=== PATIENT | female | born 2000 | race Caucasian/White ===

== ENCOUNTER 2022-10-29 22:49 | Emergency (ER) | payer BC ==
[2022-10-29] MEDS ORDERED: Acetaminophen 500 MG TAB ONE (23:32)
[2022-10-29] MEDS ORDERED: Ondansetron ODT 4 MG TAB ONE (23:53)
== END 2022-10-30 01:18 | disposition home or self-care (01) ==
LOC: CSHERS 22:49
DX: S16.1XXA Strain of muscle, fascia and tendon at neck level, initial encounter (principal); W03.XXXA Other fall on same level due to collision with another person, initial encounter; Y93.18 Activity, surfing, windsurfing and boogie boarding; Z79.899 Other long term (current) drug therapy
CPT/HCPCS: 72125; Q0162